=== PATIENT | male | born 1970 | race American Indian/Alaskan Native ===

== ENCOUNTER 2021-07-11 07:33 | Day surgery (SDC) | payer OTHER ==
[~2021-07-11 07:33] MED LIST: SODIUM CHLORIDE 0.9% 1000 ML 1,000 ML IV SCH
--- NOTE | 2021-07-11 08:21 | Anesthesia Day of Surgery ---
Anesthesia Day of Surgery - Day of Surgery Patient Examined: Yes Patient H&P Reviewed: Yes Patient is NPO: Yes
--- NOTE | 2021-07-11 08:21 | Anesthesia Consultation ---
Anesthesia Consult and Med Hx Date of service: 07/11/21 - Airway Anesthetic Teeth Evaluation: Good ROM Head & Neck: Adequate Mental/Hyoid Distance: Adequate Mallampati Class: Class II Intubation Access Assessment: Good - Pulmonary Exam CTA: Yes - Cardiac Exam Cardiac Exam: RRR - Pre-Operative Health Status ASA Pre-Surgery Classification: ASA2 Proposed Anesthetic Plan: MAC - Cardiovascular System Hx Hypertension: Yes (held medication this am) - Additional Comments Anesthesia Medical History Comments: h/o blood clots, on blood thinners, held for 2 days
[2021-07-11] MEDS ORDERED: propofoL 200 MG/20 ML VIAL IV ONE ×2 (09:02→09:15)
--- NOTE | 2021-07-11 09:54 | Procedure Note ---
Date of procedure: 07/11/21 Pre-op diagnosis: Abdominal Pain/ Nausea and Vomiting/Changes in bowel Habit Post-op diagnosis: other (Mild to Moderate Erosive Esophagitis/ R/O Eosinophilic Esophagitis/ Gastritis/ Recto-Sigmoid Polyps/ R/O Microscopic Colitis/ R/O Ileitis) Procedure: EGD with Biopsy/ Colonoscopy with biopsy Anesthesia: FELIX Surgeon: MARYAM LAYNE Estimated blood loss: minimal Pathology: list Specimen disposition: to lab Condition: stable Disposition: same day (Avoid aspirin and NSAID and Eliquis for 4 days; otherwise resume previous medication. Treat with PPI,prn Bentyl, Zofrna for nausea and OTC Probiotic and F/U in 1 to 2 weeks ([phone]).)
--- NOTE | 2021-07-11 10:51 | Procedure Note ---
Date of procedure: 07/11/20 Pre-op diagnosis: Abdominal Pain/Nausea and Vomiting and Changes in Bowel Habit Post-op diagnosis: other (Mild to Moderate Erosive Esophagitis/ Gastritis/Colon Polyps (rectosigmoid)/ R/O Microscopic colitis/ R/O Ileitis) Procedure: EGD with Biopsy and Colonoscopy with cold biopsy and Cold Snare Polypectomy Anesthesia: [facility] Surgeon: MARYAM LAYNE Estimated blood loss: minimal Pathology: list Specimen disposition: to lab Condition: stable Disposition: same day (Treat with Zofran prn,Protonix, Bentyl and Probiotic and F/U in 1 to 2 weeks Avoid aspirin and NSAID and anticoagulants for 4 days.)
--- NOTE | 2021-07-11 11:34 | Operative Report ---
DATE OF SURGERY: 07/11/2021 PROCEDURE: Colonoscopy with cold biopsy and snare polypectomy. INDICATIONS: This is a 51-year-old -[place] gentleman with an underlying history of pulmonary embolus for which he is on Eliquis. He has lately been having nausea, vomiting, abdominal pain. EGD showed some [id number] erosive esophagitis and gastritis. Biopsy was also done to rule out for eosinophilic esophagitis, but no peptic ulcer disease was noted. Colonoscopy was done after getting informed consent with MAC anesthesia to assess for any lower abdominal pathology. DESCRIPTION OF PROCEDURE: Procedure was done after getting informed consent. Instrument was passed through the rectum onto the cecum, which was identified with ileocecal valve and appendiceal orifice. Cecum was also visualized on the retroverted view. The terminal ileum was intubated, showed normal mucosa. Biopsy was done to rule out for possible ileitis. Cecum, ascending colon, transverse colon, descending colon, and sigmoid likewise showed normal mucosa. There was no evidence of any diverticular disease. Random biopsies were done to rule out for possible microscopic colitis. The rectum showed multiple small rectosigmoid polyps, 3 of which were removed by cold biopsy and 2 by cold snare polypectomy with minimal bleeding and the rectum did not show any internal hemorrhoid on the retroverted view. ASSESSMENT: Abdominal pain, multiple rectosigmoid polyps, rule out ileitis, rule out microscopic colitis. No diverticular disease noted. No internal hemorrhoids noted. The patient will be asked to avoid aspirin and aspirin-related products and anticoagulants for the next 4-5 days, treated with PPI because of the EGD findings of esophagitis and gastritis. Bentyl for abdominal pain on a p.r.n. basis, Zofran for nausea and vomiting also on a p.r.n. basis. The patient will be encouraged to take probiotics and follow up in the office in 1-2 weeks' time. Procedure was done in the GI lab with assistance of the GI lab team, which included the GI nurse, the paint prep technician and with assistance of anesthesia. TID: [id number] RECEIPT: [id number] BILLY/AYDE
--- NOTE | 2021-07-11 11:38 | Operative Report ---
DATE OF SURGERY: 07/11/2021 PROCEDURE PERFORMED: EGD with biopsy. INDICATIONS: This is a 51-year-old -[place] gentleman who has a prior history of pulmonary embolus for which he is on Eliquis. Lately, he has been having some abdominal pain with nausea, vomiting. EGD was done to make sure there was not any significant upper GI pathology present and there was no peptic ulcer disease present. DESCRIPTION OF PROCEDURE: Procedure was done after getting informed consent with MAC anesthesia. The instrument was passed through the hypopharynx into the esophagus, which showed some [id number] erosive esophagitis. Photodocumentation and biopsy was done from the distal esophagus to assess for the severity of the erosive esophagitis and also from the mid esophagus to rule out for eosinophilic esophagitis. Stomach did not show any gastric ulcers. The pylorus was patent. The duodenum in the first and second portion appeared normal. Biopsy was done from the gastric antrum, gastric body and angular incisura to rule out for H. pylori and atrophic gastritis. ASSESSMENT: Abdominal pain, nausea, vomiting. No peptic ulcer disease noted. Nbno-bl-ervlprgj erosive esophagitis, gastritis, rule out eosinophilic esophagitis. PLAN: To treat the patient with Zofran on a p.r.n. basis for nausea, vomiting and also to treat the patient with PPI. The patient will also be given Bentyl to be used on a p.r.n. basis for abdominal pain. Asked to avoid aspirin and aspirin-related products for the next few days and follow up in the office in 1-2 weeks' time. The patient will also have a colonoscopy done for further assessment. Procedure was done in the GI lab with assistance of the GI lab team, which included the GI nurse, the marine services technician and with the assistance of anesthesia. TID: [id number] RECEIPT: [id number] BILLY/POLY
--- NOTE | 2021-07-11 12:24 | Post Anesthesia Evaluation ---
- Post Anesthesia Evaluation Patient Participated: Yes Airway Patent: Yes Stable Respiratory Function: Yes Nausea/Vomiting: No Temp > 96.8F: Yes Pain Manageable: Yes Adequeate Hydration: Yes Anesthesia Complications: No
[2021-07-11 15:59] VITALS: BP 134/92
== END 2021-07-11 10:40 | disposition home or self-care (01) ==
LOC: GIO 07:33
DX: R10.9 Unspecified abdominal pain (principal); R19.7 Diarrhea, unspecified; K59.00 Constipation, unspecified; R11.2 Nausea with vomiting, unspecified; K29.70 Gastritis, unspecified, without bleeding; K21.00 Gastro-esophageal reflux disease with esophagitis, without bleeding; K63.5 Polyp of colon; K31.89 Other diseases of stomach and duodenum; K63.89 Other specified diseases of intestine; I10 Essential (primary) hypertension; Z79.899 Other long term (current) drug therapy; Z88.8 Allergy status to other drugs, medicaments and biological substances
CPT/HCPCS: 43239; 45380; 45385; 88305; 88342; J2704; J7120